=== PATIENT | female | born 1935 | race Caucasian/White ===

== ENCOUNTER 2016-05-16 16:24 | Emergency (ER) | payer MEDICARE ==
[~2016-05-16] VITALS: Ht 157.5 cm; Wt 52.3 kg
[~2016-05-16 16:24] MED LIST: ASPI81TA82 PO; DIOV40TA PO; HYDR-2768 PO; LEVO88TA21 PO; SPIRCAP INH; TEMA30CA PO; VITA-13
[2016-05-16] MEDS ORDERED: SODIUM CHLORIDE 0.9% FLUSH 5 ML FLUSH IVF PRN (17:00)
[2016-05-16] MEDS ORDERED: methylPREDNISolone SOD SUCC 125 MG/2 ML VIAL IVP ONE (17:00)
--- NOTE | 2016-05-16 17:03 | PD ---
HPI Chief Complaint: SOB Time Seen by Provider: 16:57 Travel History International Travel<30 days: No Contact w/Intl Traveler<30days: No History of Present Illness HPI 81-year-old female with a history of COPD, HTN, hypothyroidism presents to the emergency department for evaluation of cough and shortness of breath. Patient states she has had a productive cough with yellow sputum for the past week. States she thinks she has had "the bug that is going around" because her son had similar symptoms at [place]. She states she has had some mild worsening shortness of breath with this cough. States she used 2 nebulizer treatments at home today which did improve her symptoms. States a home health nurse was supposed to come check on her at home today but when she did not come her [id number] became nervous and called EMS to come pick her up. The patient states she typically has no issues with her COPD but is attributing her symptoms to this cold she has had recently. She was also given 2 nebulizers by EMS which she states improved her symptoms. Denies chest pain, lightheadedness , dizziness, nausea, vomiting, weakness, fever, chills, swelling of extremities. PCP is Dr. Ramirez Granger. [facility] Past Medical History Narrative Medical COPD HTN Hypothyroidism Cancer: No Diabetes: No Hepatitis: No Hiatal Hernia: No Thyroid Disease: Yes (HYPOTHYROIDISM) Past Surgical History Abdominal Surgery: No Cardiac Surgery: No Ear Surgery: No Endocrine Surgery: No Eye Surgery: Yes (RIGHT CATARACT AND GLAUCOMA SURGERY) Genitourinary Surgery: No Gynecologic Surgery: No Oral Surgery: Yes (TONSILLECTOMY) Pacemaker: No Thoracic Surgery: No Social History Tobacco Use: No Allergies-Medications (Allergen,Severity, Reaction): Coded Allergies: No Known Allergies (Unverified , 05/16/16) Reported Meds & Prescriptions Reported Meds & Active Scripts Active Reported Valsartan 40 Mg Tab 40 Mg PO BID Temazepam 30 Mg Cap 30 Mg PO HS PRN Levothyroxine (Levothyroxine Sodium) 88 Mcg Tab 88 Mcg PO DAILY Hydrochlorothiazide 12.5 Mg Cap 12.5 Mg PO DAILY Aspirin 81 Mg Chew 81 Mg CHEW DAILY Review of Systems Except as stated in HPI: all other systems reviewed are Neg Physical Exam Narrative GENERAL: Well-nourished and well-developed pleasant elderly female patient in no acute distress who is nontoxic appearing. SKIN: Warm and dry. HEAD: Normocephalic and atraumatic. EYES: No injection, drainage, or hyphema noted. PERRLA. EOMI. ENT: No nasal drainage noted. Oropharynx is clear. NECK: Supple and the trachea is midline. CARDIOVASCULAR: Regular rate and rhythm. RESPIRATORY: Mild expiratory wheeze with slight decreased breath sounds. Breath sounds are equal bilaterally with no accessory muscle use, rhonchi, or crackles. GASTROINTESTINAL: Abdomen is soft, non-tender, and nondistended. MUSCULOSKELETAL: No obvious deformities, swelling, cyanosis, or ecchymosis is present throughout the upper and lower extremities. Patient has full range of motion without any signs of neurovascular compromise. NEUROLOGICAL: Awake, alert, and oriented. Normal speech and gait. Cranial nerves are grossly intact. Data Data Last Documented VS Vital Signs Date Time Temp Pulse Resp B/P Pulse Ox O2 Delivery O2 Flow Rate FiO2 05/16/16 17:25 95 2 05/16/16 17:25 Nasal Cannula 05/16/16 17:25 83 18 156/91 05/16/16 17:10 98.8 Orders Complete Blood Count With Diff (05/16/16 16:56) Comprehensive Metabolic Panel (05/16/16 16:56) B-Type Natriuretic Peptide (05/16/16 16:56) Troponin I (05/16/16 16:56) Influenzae A/B Antigen (05/16/16 16:56) Iv Access Insert/Monitor (05/16/16 16:56) Electrocardiogram (05/16/16 16:56) Ecg Monitoring (05/16/16 16:56) Oximetry (05/16/16 16:56) Oxygen Administration (05/16/16 16:56) Chest, Single Ap (05/16/16 16:56) Sodium Chloride 0.9% Flush (Ns Flush) (05/16/16 17:00) Methylprednisolone So Succ Inj (Solumedr (05/16/16 17:00) Labs Laboratory Tests Test 05/16/16 17:39 White Blood Count 10.8 TH/MM3 Red Blood Count 4.32 MIL/MM3 Hemoglobin 14.2 GM/DL Hematocrit 41.9 % Mean Corpuscular Volume 97.0 FL Mean Corpuscular Hemoglobin 32.9 PG Mean Corpuscular Hemoglobin 33.9 % Concent Red Cell Distribution Width 12.9 % Platelet Count 313 TH/MM3 Mean Platelet Volume 7.2 FL Neutrophils (%) (Auto) 78.0 % Lymphocytes (%) (Auto) 13.4 % Monocytes (%) (Auto) 7.9 % Eosinophils (%) (Auto) 0.1 % Basophils (%) (Auto) 0.6 % Neutrophils # (Auto) 8.4 TH/MM3 Lymphocytes # (Auto) 1.5 TH/MM3 Monocytes # (Auto) 0.9 TH/MM3 Eosinophils # (Auto) 0.0 TH/MM3 Basophils # (Auto) 0.1 TH/MM3 CBC Comment DIFF FINAL Differential Comment Sodium Level 137 MEQ/L Potassium Level 3.7 MEQ/L Chloride Level 98 MEQ/L Carbon Dioxide Level 31.9 MEQ/L Anion Gap 7 MEQ/L Blood Urea Nitrogen 13 MG/DL Creatinine 0.97 MG/DL Estimat Glomerular Filtration 55 ML/MIN Rate Random Glucose 131 MG/DL Calcium Level 8.7 MG/DL Total Bilirubin 0.4 MG/DL Aspartate Amino Transf 19 U/L (AST/SGOT) Alanine Aminotransferase 21 U/L (ALT/SGPT) Alkaline Phosphatase 71 U/L Troponin I LESS THAN 0.02 NG/ML B-Type Natriuretic Peptide 55 PG/ML Total Protein 6.6 GM/DL Albumin 3.4 GM/DL [facility] Medical Decision Making Medical Screen Exam Complete: Yes Emergency Medical Condition: Yes Differential Diagnosis COPD exacerbation versus ACS versus viral illness versus pneumonia Narrative Course 81-year-old female is brought to the emergency department by EMS for evaluation of cough and shortness of breath. Patient is afebrile, vital signs are stable. Per EMS initially the patient's oxygen saturation was 91% on room air. She is now 94% on room air. She was given 2 nebulizer treatments by EMS on route and is reporting improvement of symptoms. She is in no acute distress at this time she has a mild expiratory wheeze. IV access is obtained, labs have been drawn and sent. Patient is administered SoluMedrol 125 mg IV. Chest x-ray is negative for any acute abnormalities. EKG shows sinus rhythm with no acute ST elevations or depressions. CBC is unremarkable. CMP is unremarkable. Influenza swab is negative. Troponin is less than 0.02. Patient has remained stable and without complaint while here in the emergency department. Labs are all reassuring. Chest x-ray is unremarkable. The patient had a mild exacerbation of her COPD likely secondary to a viral illness. Due to her risk factors we'll treat her with azithromycin and will discharge her with a short course of steroids. She is instructed to use her nebulizers more frequently. Advised to follow-up with her PCP. Discussed when to return to the emergency department. Patient verbalizes understanding and agreement with treatment plan. I discussed the case with my attending physician Dr. Phan who is aware of the patients history, physical examination findings, and treatment plan. Diagnosis Primary Impression: COPD exacerbation Referrals: Primary Care Physician Patient Instructions: General Instructions Additional Instructions: Use nebulizer treatments every 4-6 hours. Take medications as prescribed with food and a full glass of water. Follow-up with your Primary Care Physician. Return to the ED for any acute worsening of symptoms. Med/Other Pt SpecificInfo: Prescription(s) given Scripts Prednisone 20 Mg Tab20 Mg PO BID 5 Days Ref 0 Prov:Kamran Phan MD 05/16/16 Azithromycin (Zithromax Z-Quirino)250 Mg [id number] Mg PO DIRECTED #1 DSPK Ref 0 500 MG (2 tabs) day 1, then 1 tab days 2-5. Prov:Kamran Phan MD 05/16/16 Disposition: 01 DISCHARGE HOME Condition: Stable Myla Rodriguez May 16, 2016 17:03
[2016-05-16 17:10] VITALS: BP 146/80; PULSE 74; RESP 18; TEMP 98.8; O2SAT 95
--- NOTE | 2016-05-16 17:17 | RADRPT ---
EXAM DATE/TIME: 05/16/2016 17:09 [facility] COMPARISON: No previous studies available for comparison. INDICATIONS : Cough and shortness of breath. MEDICAL HISTORY : Chronic obstructive pulmonary disease. SURGICAL HISTORY : None. ENCOUNTER: Initial ACUITY: 1 day PAIN SCORE: 0/10 LOCATION: chest FINDINGS: A single view of the chest demonstrates the lungs to be symmetrically aerated without evidence of mas s, infiltrate or effusion. The cardiomediastinal contours are unremarkable. Osseous structures are intact. CONCLUSION: No acute disease. Darrion Gallagher MD on May 16, 2016 at 17:15 Board Certified Radiologist. This report was verified electronically.
[2016-05-16 17:25] VITALS: BP 156/91; PULSE 83; RESP 18; O2SAT 95
[2016-05-16] MEDS ORDERED: HYDR12.57 PO (17:33)
[2016-05-16] MEDS ORDERED: LEVO88TA2 PO (17:33)
[2016-05-16] MEDS ORDERED: TEMA30CA PO (17:33)
[2016-05-16] MEDS ORDERED: ASPI81CH CHEW (17:33)
[2016-05-16] MEDS ORDERED: VALS1TAB63 PO (17:33)
[2016-05-16 18:20] LABS: ALT (GPT) 21 U/L (10-53); ANION GAP 7 MEQ/L (5-15); AST (GOT) 19 U/L (15-37); BICARBONATE 31.9 MEQ/L (21.0-32.0); BLOOD UREA NITROGEN 13 MG/DL (7-18); CHLORIDE 98 MEQ/L (98-107); GLOMERULAR FILTRATION RATE 55 ML/MIN (>89); POTASSIUM 3.7 MEQ/L (3.5-5.1); SODIUM (NA) 137 MEQ/L (136-145)
[2016-05-16 18:21] LABS: AUTOMATED NEUTROPHIL # 8.4 TH/MM3 (1.8-7.7); BASOPHIL # 0.1 TH/MM3 (0-0.2); BASOPHIL % 0.6 % (0.0-2.0); EOSINOPHIL % 0.1 % (0.0-4.0); HEMATOCRIT 41.9 % (35.0-46.0); HEMO FLAGS DIFF FINAL; LYMPH % 13.4 % (9.0-44.0); LYMPHOCYTE # 1.5 TH/MM3 (1.0-4.8); MEAN CORPUSCULAR HEMOGLOBIN 32.9 PG (27.0-34.0); MEAN CORPUSCULAR HGB CONC 33.9 % (32.0-36.0); MONO % 7.9 % (0.0-8.0); PLATELET COUNT 313 TH/MM3 (150-450); RED BLOOD COUNT 4.32 MIL/MM3 (4.00-5.30); RED CELL DISTRIBUTION WIDTH 12.9 % (11.6-17.2); WHITE BLOOD COUNT 10.8 TH/MM3 (4.0-11.0)
[2016-05-16 18:24] LABS: ALKALINE PHOSPHATASE 71 U/L (45-117); TOTAL BILIRUBIN ADULT 0.4 MG/DL (0.2-1.0)
[2016-05-16] MEDS ORDERED: ZITHTAB PO (18:54)
[2016-05-16] MEDS ORDERED: PRED20 PO (18:54)
--- NOTE | 2016-05-17 10:26 | EKG ---
Date Performed: 05/16/2016 Time Performed: 17:19:43 PTAGE: 81 years EKG: Sinus rhythm WITH OCCASIONAL SUPRAVENTRICULAR PREMATURE COMPLEXES POSSIBLE RIGHT ATRIAL ENLARGEMENT POSSIBLE RIGH T VENTRICULAR CONDUCTION DELAY MINIMAL ST DEPRESSION BORDERLINE ECG NO PREVIOUS TRACING DOCTOR: Sarmad Valentine Interpretating Date/Time 05/17/2016 10:24:04
== END 2016-05-16 19:37 | disposition home or self-care (01) ==
LOC: NEPB 16:24
DX: J44.1 Chronic obstructive pulmonary disease with (acute) exacerbation (principal); I10 Essential (primary) hypertension; E03.9 Hypothyroidism, unspecified; R05 Cough; R94.31 Abnormal electrocardiogram [ECG] [EKG]
CPT/HCPCS: 71010; 80053; 83880; 84484; 85025; 87804; 93005; 96374; 99284; J2930